=== PATIENT | male | born 1965 | race Caucasian/White ===

== ENCOUNTER 2016-10-20 15:10 | Emergency (ER) | payer OTHER ==
[~2016-10-20] VITALS: Ht 175.3 cm; Wt 56.7 kg
[2016-10-20 15:21] VITALS: BP 136/90
--- NOTE | 2016-10-20 16:19 | ED GENERAL ADULT ---
History of Present Illness General Chief Complaint: General Adult Stated Complaint: PT CANT'T LEFT LEG,PT HAS THRUST,BLOOD IN URINE Source: patient, family Exam Limitations: no limitations Vital Signs & Intake/Output Vital Signs & Intake/Output Vital Signs Date Time Temp Pulse Resp B/P Pulse O2 O2 Flow FiO2 Ox Delivery Rate 10/20 1521 98.4 112 20 136/90 97 Room Air ED Intake and Output 10/21 0000 10/20 1200 Intake Total 100 Output Total Balance 100 Intake, Oral 100 Patient 125 lb Weight Allergies Coded Allergies: No Known Allergies (10/20/16) Reconcile Medications Gabapentin 400 MG CAPSULE 1 CAP PO TID NEUROPATHY Nystatin 100,000 UNIT/ML ORAL.SUSP 5 ML PO 4 TIMES/DAY THRUSH Triage Note: TRIAGE: PT TO ER WITH MOTHER C/C BLOOD IN URINE. MOTHER STATES "HE WAS GOING IN THE URINAL AND WHEN I EMPTIED IT IT WAS RED". PATIENT STATES "MY URINE STINKS AND IT USUALLY DOESN'T". MOTHER STATES "HE HAS THRUSH IN HIS THROAT BUT HE DIDN'T TAKE CARE OF IT. IT'S BEEN 2 MONTHS AND IT DOESN'T GET BETTER." Triage Nurses Notes Reviewed? yes Onset: Gradual Duration: week(s): (few) Timing: recent history Injury Environment: home Severity: severe No Modifying Factors: none Associated Symptoms: painful swallowing HPI: This is a 50 year old male who presents with his mother for chief complaint of thrush. According to his mother though he is also been having issues with difficulty breathing, blood in his urine. He has no primary care doctor. He drinks heavily on a daily basis. He is a significant daily smoker. Question with history of bipolar disorder. The patient is reluctant to provide any history other than the fact that he needs something for his thrush. Past History Travel History Traveled to [place] past 21 day No Medical History Any Pertinent Medical History? see below for history Neurological: NEUROPATHY EENT: NONE Cardiovascular: hypertension, PALPITATIONS Respiratory: asthma, PTX FROM TRAUMA Gastrointestinal: GERD Hepatic: NONE Renal: NONE Musculoskeletal: NONE Psychiatric: bipolar disease Endocrine: NONE Blood Disorders: NONE Cancer(s): NONE PUBLIC RELATIONS CONSULTANT/Reproductive: NONE Surgical History Surgical History: non-contributory Psychosocial History What is your primary language Ethiopian Tobacco Use: Current Daily Use Daily Tobacco Use Amount/Type: => 5 Cigarettes daily ETOH Use: heavy use Illicit Drug Use: marijuana Family History Hx Contributory? No Review of Systems Review of Systems Constitutional: Denies: chills, fever. EENTM: Reports: throat pain (THRUSH). Respiratory: Reports: no symptoms. Cardiovascular: Denies: chest pain, palpitations. GI: Reports: abdominal pain. Denies: nausea, vomiting. Genitourinary: Reports: hematuria (POSSIBLE). Musculoskeletal: Reports: no symptoms. Skin: Reports: no symptoms. Neurological/Psychological: Reports: anxiety. Hematologic/Endocrine: Denies: bruising, bleeding, polyuria, polydipsia. Immunologic/Allergic: Reports: see HPI. Denies: splenectomy. All Other Systems: Reviewed and Negative Physical Exam Physical Exam General Appearance: alert, awake, anxious, cachetic, mild distress, thin Head: atraumatic, normal appearance Eyes: Bilateral: PERRL, EOMI. Ears, Nose, Throat: normal pharynx, hearing grossly normal Neck: normal inspection, supple, full range of motion Respiratory: normal breath sounds, chest non-tender, no respiratory distress Cardiovascular: regular rate/rhythm Peripheral Pulses: 2+ radial (R), 2+ radial (L) Gastrointestinal: normal bowel sounds, soft, non-tender Neurologic/Psych: awake, alert, ORIENTED X 2 Skin: intact, normal color, warm/dry Core Measures ACS in differential dx? No CVA/TIA Diagnosis: No Severe Sepsis Present: No Septic Shock Present: No Progress Differential Diagnoses I considered the following diagnoses in my evaluation of the patient: [ALCOHOL ABUSE, DRUG ABUSE, CACHEXIA, IMMUNE COMPROMISE] Plan of Care: Orders Procedure Date/time Status CBC WITHOUT DIFFERENTIAL 10/20 174 Complete COMPREHENSIVE METABOLIC PANEL 10/20 1623 Complete Laboratory Tests 10/20/16 1744: Anion Gap 25 H, Estimated GFR > 60, BUN/Creatinine Ratio 18.0, Glucose 85, Calcium 9.3, Total Bilirubin 1.5 H, AST 279 H, ALT 72, Alkaline Phosphatase 206 H, Total Protein 8.5 H, Albumin 4.8, Globulin 3.7, Albumin/Globulin Ratio 1.3, CBC w Diff NO MAN DIFF REQ, RBC 2.55 L, MCV 113.5 H, MCH 38.6 H, RDW 18.6 H, MPV 7.1 L, Gran % 65.7, Lymphocytes % 21.9, Monocytes % 10.0 H, Eosinophils % 1.3, Basophils % 1.1, Absolute Granulocytes 2.9, Absolute Lymphocytes 1.0 L, Absolute Monocytes 0.4, Absolute Eosinophils 0.1, Absolute Basophils 0, PUBS MCHC 34.0 10/20/16 1637: CBC w Diff Cancelled, WBC Cancelled, RBC Cancelled, Hgb Cancelled, Hct Cancelled , MCV Cancelled, MCH Cancelled, RDW Cancelled, Plt Count Cancelled, MPV Cancelled, PUBS MCHC Cancelled 10/20/16 1623: Methadone Screen Cancelled, Barbiturate Screen Cancelled, Ur Phencyclidine Scrn Cancelled, Amphetamines Screen Cancelled, U Benzodiazepines Scrn Cancelled, Urine Cocaine Screen Cancelled, Urine Cannabis Screen Cancelled 10/20/16 1622: Urine Color Cancelled, Urine Clarity Cancelled, Urine pH Cancelled, Ur Specific [place] Cancelled, Urine Protein Cancelled, Urine Ketones Cancelled, Urine Nitrite Cancelled, Urine Bilirubin Cancelled, Urine Urobilinogen Cancelled, Ur Leukocyte Esterase Cancelled, Ur Microscopic Cancelled, Urine Hemoglobin Cancelled, Urine Glucose Cancelled Patient angry that we are drawing labs, states he wants to go home. Does not want to stay for the results of his labs and does not want to submit a UA. His mother will encourage him to follow up with a local primary care provider. (GARTH CRAFT,ZITA) Diagnostic Imaging: Viewed by Me: Radiology Read. Discussed w/RAD: Radiology Read. CXR Impression: PATIENT: WATSON NORTON PRESENT AGE: 50 PATIENT ACCOUNT NO: [id number] : 65 LOCATION: [facility] ORDERING PHYSICIAN: ZITA LIANG MD SERVICE DATE: 10/20/16 EXAM TYPE: RAD - XRY-CHEST XRAY , PA AND LATERAL EXAMINATION: XR CHEST CLINICAL INFORMATION: Dyspnea, smoker. Rule out pneumonia COMPARISON: None. TECHNIQUE: AP AP and lateral views of the chest FINDINGS: Sideplate and screw fixation of a prior left humeral fracture seen. Numerous additional radiopaque foreign bodies, presumably external to the patient are strewn across the lower chest and upper abdomen. There may be a metallic fragment within the medial soft tissues of the left arm. 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 Mild bibasilar atelectasis. No focal consolidation or mass. No pleural effusion or pneumothorax. Heart size upper limits of normal. Mildly tortuous aorta. IMPRESSION: Mild bibasilar atelectasis but no acute pulmonary disease. DICTATED BY: JESICA ROLON MD DATE/TIME DICTATED:10/20/161723 ASSISTANT SALES MANAGER:MIRNA DATE/TIME TRANSCRIBED:10/20/161723 CONFIDENTIAL, DO NOT COPY WITHOUT APPROPRIATE AUTHORIZATION. <Electronically signed in Other Vendor System> SIGNED BY: JESICA ROLON MD 10/20/161731 Initial ED EKG: none Departure Departure Time of Disposition: 1748 Disposition: HOME OR SELF CARE Condition: Stable Clinical Impression Primary Impression: Thrush Referrals: PATIENT HAS NO PRIMARY CARE DR (PCP/Family) Additional Instructions: TAKE THE DIFLUCAN AND GABAPENTIN DISCUSSED AND FOLLOW UP WITH THE LIST OR PRIMARY CARE PROVIDERS. CALL FOR YOUR BLOOD TEST RESULTS. Departure Forms: Customer Survey General Discharge Information Prescriptions: Current Visit Scripts Nystatin 5 ML PO 4 TIMES/DAY #200 ML Gabapentin 1 CAP PO TID #90 CAP Critical Care Note Critical Care Note Critical Care Time: non-applicable
--- NOTE | 2016-10-20 17:32 | RADIOLOGY REPORT ---
EXAMINATION: XR CHEST CLINICAL INFORMATION: Dyspnea, smoker. Rule out pneumonia COMPARISON: None. TECHNIQUE: AP AP and lateral views of the chest FINDINGS: Sideplate and screw fixation of a prior left humeral fracture seen. Numerous additional radiopaque foreign bodies, presumably external to the patient are strewn across the lower chest and upper abdomen. There may be a metallic fragment within the medial soft tissues of the left arm. 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 Mild bibasilar atelectasis. No focal consolidation or mass. No pleural effusion or pneumothorax. Heart size upper limits of normal. Mildly tortuous aorta. IMPRESSION: Mild bibasilar atelectasis but no acute pulmonary disease.
[2016-10-20] MEDS ORDERED: NYSTATIN100000 UNI PO (17:51)
[2016-10-20] MEDS ORDERED: GABAPENTIN400 M2 PO (17:52)
[2016-10-20 17:59] LABS: ABSOLUTE BASOPHIL COUNT 0 /CUMM (0.0-0.2); ABSOLUTE EOSINOPHIL COUNT 0.1 /CUMM (0.0-0.7); MEAN PLATELET VOLUME 7.1 FL (7.4-10.4)
[2016-10-20 18:01] LABS: ABSOLUTE GRANULOCYTE CT 2.9 /CUMM (1.4-6.5); ABSOLUTE MONOCYTE COUNT 0.4 /CUMM (0.10-0.60); BASOPHIL % 1.1 % (0.0-2.0); EOSINOPHIL % 1.3 % (0-5); GRANULOCYTE % 65.7 % (42.2-75.2); HEMATOCRIT 28.9 % (42-52); MEAN CORPUSCULAR HGB 38.6 PG (27.0-31.0); PLATELET COUNT 155 /CUMM (130-400); RBC DISTRIBUTION WIDTH 18.6 % (11.5-14.5); RED BLOOD CELL CT 2.55 /CUMM (4.70-6.10); WHITE BLOOD CELL COUNT 4.4 /CUMM (4.8-10.8)
[2016-10-20 18:19] LABS: MEAN CORPUSCULAR VOLUME 113.5 FL (80.0-94.0)
== END 2016-10-20 18:03 ==
LOC: ERH 15:10
PROVIDERS: Emergency Medicine
DX: B37.0 Candidal stomatitis (principal); R31.9 Hematuria, unspecified; R06.00 Dyspnea, unspecified
CPT/HCPCS: 80307